=== PATIENT | female | born 1995 | race Caucasian/White ===

== ENCOUNTER 2017-04-12 00:27 | Emergency (ER) | payer SELFPAY ==
[~2017-04-12] VITALS: Ht 152.4 cm; Wt 72.6 kg
[2017-04-12 00:30] VITALS: BP 111/65
[2017-04-12] MEDS ORDERED: AMOX875T PO (00:42)
--- NOTE | 2017-04-12 00:43 | PHYS DOC ---
Adult General Chief Complaint Chief Complaint: SORE THROAT HPI HPI Patient is a 21 year old female presents to the emergency department one-week history of sore throat. She states that she is used [id number] [place] without relief of symptoms. She states that she has not had a fever. She has had recent strep exposure. Review of Systems Review of Systems Constitutional: Denies fever or chills [] Eyes: Denies change in visual acuity, redness, or eye pain [] HENT: Sore throat without congestion Respiratory: Denies cough or shortness of breath [] Cardiovascular: No additional information not addressed in HPI [] GI: Denies abdominal pain, nausea, vomiting, bloody stools or diarrhea [] : Denies dysuria or hematuria [] Musculoskeletal: Denies back pain or joint pain [] Integument: Denies rash or skin lesions [] Neurologic: Denies headache, focal weakness or sensory changes [] Endocrine: Denies polyuria or polydipsia [] All other systems were reviewed and found to be within normal limits, except as documented in this note. Physical Exam Physical Exam Constitutional: Well developed, well nourished, no acute distress, non-toxic appearance. [] HENT: Normocephalic, atraumatic, bilateral external ears normal, oropharynx moist, posterior pharynx erythematous with exudate, no oral exudates, nose normal. [] Eyes: PERRLA, EOMI, conjunctiva normal, no discharge. [] Neck: Normal range of motion, no tenderness, supple with anterior cervical lymphadenopathy, no stridor. [] Cardiovascular:Heart rate regular rhythm, no murmur [] Lungs & Thorax: Bilateral breath sounds clear to auscultation [] Skin: Warm, dry, no erythema, no rash. [] Back: No tenderness, no CVA tenderness. [] Extremities: No tenderness, no cyanosis, no clubbing, ROM intact, no edema. [] Neurologic: Alert and oriented X 3, normal motor function, normal sensory function, no focal deficits noted. [] Psychologic: Affect normal, judgement normal, mood normal. [] EKG EKG [] Radiology/Procedures Radiology/Procedures [] Course & Med Decision Making Course & Med Decision Making Pertinent Labs and Imaging studies reviewed. (See chart for details) [] Dragon Disclaimer Dragon Disclaimer This electronic medical record was generated, in whole or in part, using a voice recognition dictation system. Departure Departure Impression: Primary Impression: Pharyngitis Disposition: HOME, SELF-CARE Condition: STABLE [facility]errals: [facility] Patient Instructions: Viral and Bacterial Pharyngitis Additional Instructions: Magic mouthwash gargle and spit 1 teaspoon every 3 hours as needed for sore throat. Scripts Amoxicillin (AMOXICILLIN) 875 Mg Tablet 1 TAB PO BID, #14 TAB Prov: JESS JOY APRN 04/12/17 Problem Qualifiers Primary Impression: Pharyngitis Pharyngitis/tonsillitis etiology: other specified organisms Qualified Codes: J02.8 - Acute pharyngitis due to other specified organisms JESS JOY APRN Apr 12, 2017 00:43
== END 2017-04-12 00:51 | disposition home or self-care (01) ==
LOC: ER 00:27
DX: J02.9 Acute pharyngitis, unspecified (principal)
CPT/HCPCS: 99283